=== PATIENT | female | born 1995 | race Hispanic/Latino ===

== ENCOUNTER 2022-02-09 10:14 | Outpatient (CLI) | payer BC | END 2022-02-09 10:15 | disposition home or self-care (01) | LOC: DTY/OP 10:14 | PROVIDERS: ATTEND Surgery | DX: E28.2 Polycystic ovarian syndrome (principal); Z68.42 Body mass index [BMI] 45.0-49.9, adult; Z71.3 Dietary counseling and surveillance | CPT/HCPCS: 97802 ==